=== PATIENT | female | born 1950 | race African-American/Black ===

== ENCOUNTER 2016-06-18 08:59 | Emergency (ER) | payer SELFPAY ==
[~2016-06-18] VITALS: Ht 162.6 cm; Wt 105.0 kg
[~2016-06-18 08:59] MED LIST: IBUP600T26 PO
[2016-06-18 09:03] VITALS: BP 189/98; PULSE 81; RESP 18; TEMP 98.2; O2SAT 97
--- NOTE | 2016-06-18 09:27 | PD ---
HPI Chief Complaint: Fall Time Seen by Provider: 09:22 Travel History International Travel<30 days: No Contact w/Intl Traveler<30days: No Traveled to known affect area: No History of Present Illness HPI Patient is a 65-year-old female presented to emergency department for evaluation of left knee pain and right elbow pain. Patient states she was walking into work when she tripped, falling onto her knees and right elbow. Patient states the pain is 8 out of 10 and describes it as sore. Patient has abrasion to the left knee and right elbow. She denies any head injury or loss of consciousness. She denies any back pain, numbness or tingling in her lower extremities. She denies any chest pain or shortness of breath prior to the fall. Patient's other complaints at this time. PFSH Past Medical History High Cholesterol: Yes Menopausal: Yes : 2 Para: 2 Tubal Ligation: Yes Past Surgical History Section: Yes (X1) Hysterectomy: Yes (PARTIAL) Social History Alcohol Use: No Tobacco Use: No Substance Use: No Allergies-Medications (Allergen,Severity, Reaction): Coded Allergies: No Known Allergies (Verified , 06/18/16) Reported Meds & Prescriptions Reported Meds & Active Scripts Active Ibuprofen 800 Mg Tab 800 Mg PO Q8H PRN Review of Systems Except as stated in HPI: all other systems reviewed are Neg Musculoskeletal: Positive: Myalgias, Pain Skin: Positive Other (abrasions) Physical Exam Narrative GENERAL: Well-nourished, well-developed patient. SKIN: Focused skin assessment warm/dry. Superficial abrasion to the left anterior knee and right forearm just distal to the elbow HEAD: Normocephalic. EYES: No scleral icterus. No injection or drainage. NECK: Supple, trachea midline. No JVD or lymphadenopathy. CARDIOVASCULAR: Regular rate and rhythm without murmurs, gallops, or rubs. RESPIRATORY: Breath sounds equal bilaterally. No accessory muscle use. GASTROINTESTINAL: Abdomen soft, non-tender, nondistended. MUSCULOSKELETAL: No cyanosis, or edema. Full range of motion in all 4 extremities. No obvious deformities noted. 5/5 muscle strength in all 4 extremities. Patient is neurovascularly intact. BACK: Nontender without obvious deformity. No CVA tenderness. Data Data Last Documented VS Vital Signs Date Time Temp Pulse Resp B/P Pulse Ox O2 Delivery O2 Flow Rate FiO2 06/18/16 09:03 98.2 81 18 189/98 97 Orders Knee, Complete (4vws) (06/18/16 ) Wound Care (06/18/16 09:18) Crutches (06/18/16 10:17) MDM Medical Decision Making Medical Screen Exam Complete: Yes Emergency Medical Condition: Yes Interpretation(s) Vital Signs Date Time Temp Pulse Resp B/P Pulse Ox O2 Delivery O2 Flow Rate FiO2 06/18/16 09:03 98.2 81 18 189/98 97 Differential Diagnosis Strain versus sprain versus effusion versus fracture versus abrasions versus laceration versus other Narrative Course Patient is a 65-year-old female presenting to the emergency department for evaluation of left knee and right elbow pain after sustaining a mechanical fall while walking into work this morning. Patient denies any head injury or loss of consciousness. Patient is neurovascularly and neurologically intact. Imaging of the left knee ordered and pending. Wound care ordered. Imaging of left knee is negative for acute fracture, does show degenerative changes. Wound care was performed. Patient be given crutches for support however she is encouraged to engage in range of motion exercises, alternate heat and ice to affected area, avoid bed rest, increase weightbearing as tolerated. She is encouraged follow-up with a primary doctor. She is encouraged to return to emergency department for any new or worsening symptoms. Patient verbalized understanding of these instructions. Patient is stable for discharge. Diagnosis Primary Impression: Abrasions of multiple sites Additional Impression: Knee pain Qualified Code: M25.562 - Acute pain of left knee Referrals: Primary Care Physician Patient Instructions: General Instructions, Knee Exercises (GEN), Knee Pain (ED ) Departure Forms: Tests/Procedures, Work Release Enter return to work date: Jun 20, 2016 Additional Instructions: Follow-up with her primary doctor Continue range of motion exercises, alternate heat and ice the affected area, increase weightbearing as tolerated Use crutches for support Return to emergency department for any new or worsening symptoms Keep abrasions clean and dry, wash with soap and water, apply topical antibiotic ointment and nonadherent dressing. Do not continue to use peroxide. Med/Other Pt SpecificInfo: Prescription(s) given Scripts Ibuprofen 800 Mg Dvi382 Mg PO Q8H PRN (Pain/Inflammation) #30 TAB Ref 0 Prov:Aundrea Lowe 06/18/16 Disposition: 01 DISCHARGE HOME Condition: Stable Mynor,Mimacatalino PARHAM Jun 18, 2016 09:27
--- NOTE | 2016-06-18 10:02 | RADRPT ---
EXAM DATE/TIME: 06/18/2016 09:51 [facility] COMPARISON: No previous studies available for comparison. INDICATIONS : Left knee injury, fall walking across the street landed on patella. Pain in anterio r portion of knee. MEDICAL HISTORY : None. SURGICAL HISTORY : None. ENCOUNTER: Initial ACUITY: 1 day PAIN SCORE: 10/10 LOCATION: Left knee FINDINGS: There are degenerative changes in the knee with loss of articular cartilage in the medial compartment . There is no evidence for joint effusion. Alignment is anatomic. CONCLUSION: Degenerative changes without fracture. Eric Miller MD FACR on June 18, 2016 at 9:59 Board Certified Radiologist. This report was verified electronically.
[2016-06-18] MEDS ORDERED: IBUP800T23 PO (10:19)
== END 2016-06-18 10:31 | disposition home or self-care (01) ==
LOC: NETRI 08:59
DX: S80.212A Abrasion, left knee, initial encounter (principal); S50.311A Abrasion of right elbow, initial encounter; W01.0XXA Fall on same level from slipping, tripping and stumbling without subsequent striking against object, initial encounter; Y93.01 Activity, walking, marching and hiking; Y92.9 Unspecified place or not applicable; Y99.9 Unspecified external cause status
CPT/HCPCS: 73564; 99283; E0113

== ENCOUNTER 2017-04-25 19:13 | Emergency (ER) | payer SELFPAY ==
[~2017-04-25 19:13] MED LIST changes: +IBUP1TAB7 PO; -IBUP600T26 PO
[2017-04-25 19:19] VITALS: BP 191/87; PULSE 78; RESP 16; TEMP 97.4; O2SAT 96
--- NOTE | 2017-04-26 09:11 | PD ---
Physical Exam Date Seen by Provider: Apr 25, 2017 Time Seen by Provider: 21:05 Narrative 66-year-old female presents to the emergency department for evaluation. Umbilical abdominal pain that started yesterday. Pain is currently 10/26. Data Data Last Documented VS Vital Signs Date Time Temp Pulse Resp B/P (MAP) Pulse Ox O2 Delivery O2 Flow Rate FiO2 04/25/17 19:19 97.4 78 16 191/87 (121) 96 MDM Supervised Visit with DANIA: No Narrative Course 66-year-old female presents to the emergency department for evaluation of abdominal pain that started yesterday. She was initially seen in triage. She left AGAINST MEDICAL ADVICE before she could be moved to medical bed. Diagnosis Primary Impression: Left against medical advice Patient Instructions: General Instructions Departure Forms: Tests/Procedures Disposition: 07 AGAINST MEDICAL ADVICE Michelle Sales Apr 26, 2017 09:11
== END 2017-04-25 23:44 | disposition left against medical advice (07) ==
LOC: NED 21:00
DX: R10.9 Unspecified abdominal pain (principal); Z53.21 Procedure and treatment not carried out due to patient leaving prior to being seen by health care provider
CPT/HCPCS: 99281